=== PATIENT | female | born 1995 | race Caucasian/White ===

== ENCOUNTER 2016-10-05 10:06 | Emergency (ER) | payer OTHER ==
[2016-10-05 10:32] VITALS: BP 127/62; PULSE 80; RESP 20; TEMP 98.8
--- NOTE | 2016-10-05 10:55 | ED ---
ENT HPI - General Chief complaint: ENT Stated complaint: congestion Time Seen by Provider: 10/05/16 10:39 Source: patient, RN notes reviewed Mode of arrival: ambulatory Limitations: no limitations - History of Present Illness Initial comments: 21-year-old female presents emergency Department chief complaint of cough cold runny nose like symptoms. Patient states that she has had the symptoms for the last few days. Patient states that her sinus cement-like symptoms. Patient is a smoker. Patient denies any sputum production with cough. She denies any changes in eating and drinking she denies any nausea or vomiting. Patient states she's a sore throat ear pain and swelling glands. Patient states that she just was not feeling much better so she thought that she should be evaluated.Patient denies any recent fever, chills, shortness of breath, chest pain, back pain, abdominal pain, nausea vomiting, numbness or tingling, dysuria or hematuria, constipation or diarrhea, headaches or visual changes, or any other current symptoms. - Related Data Home Medications Medication Instructions Recorded Confirmed Vit No.124/Iron/FA 1 each PO DAILY 01/20/15 07/24/15 [ Vitamin Tablet] Previous Rx's Medication Instructions Recorded predniSONE 50 mg PO DAILY #5 tab 10/05/16 Allergies Allergy/AdvReac Type Severity Reaction Status Date / Time amoxicillin Allergy Rash/Hives Verified 10/05/16 10:32 erythromycin base Allergy Rash/Hives Verified 10/05/16 10:32 latex Allergy Rash/Hives Verified 10/05/16 10:32 Penicillins Allergy Rash/Hives Verified 10/05/16 10:32 Review of Systems ROS Statement: Those systems with pertinent positive or pertinent negative responses have been documented in the HPI. ROS Other: All systems not noted in ROS Statement are negative. Past Medical History Past Medical History: Seizure Disorder Additional Past Medical History / Comment(s): Obstetrical history: First was a vaginal delivery at 36 weeks, 6 lbs. 7 oz. This is her second . She's had care with me since 11 weeks gestation. She did not inform me that she's been smoking marijuana as well as cigarettes daily. Her blood type is A+, antibodies negative, rubella immune, RPR nonreactive, hepatitis B-, abnormal 1 hour but normal 3 hour glucose tolerance test. She's been having nausea and vomiting through her entire . At 35 weeks baby was only measuring and a 10 percentile and continues measure small. GBS positive History of Any Multi-Drug Resistant Organisms: None Reported Past Surgical History: Hernia Repair Past Anesthesia/Blood Transfusion Reactions: No Reported Reaction Past Psychological History: ADD/ADHD Smoking Status: Current every day smoker Past Alcohol Use History: None Reported Past Drug Use History: Marijuana - Past Family History Father Family Medical History: No Reported History General Exam - General Exam Comments Initial Comments: General exam: Alert, active, comfortable in no apparent distress Head: Normocephalic Eyes: Normal reaction of pupils, equal size, normal range of extraocular motion Ears: normal external ear canals, pink tympanic membranes with normal cone of light Nose: clear with pink turbinates Throat: Erythema, no exudates with normal sized tonsils Neck: no masses, no nuchal rigidity Chest: no chest wall deformity Lungs: equal air entry with no crackles or wheeze CVS: S1 and S2 normal with no audible mumurs, regular rhythm Abdomen: no hepatosplenomegaly, normal bowel sounds, no guarding or rigidity Spine: no scoliosis or deformity Skin: no rashes Neurological: No focal deficits, tone is normal in all 4 extremities Limitations: no limitations Course Vital Signs 10/05/16 10:28 Temperature 98.8 F Pulse Rate 80 Respiratory 20 Rate Blood Pressure 127/62 O2 Sat by Pulse 100 Oximetry Medical Decision Making - Medical Decision Making 19-year-old female presents to the emergency department with a chief complaint of cough cold runny nose like symptoms. This time patient's testing results came back and did not show any acute process. This time we discussed patient with significant upper respiratory infection. Discussed Motrin Tylenol for pain and fever control. We discussed return parameters and follow-up. We discussed all the patient's questions and she stated that she understood. This time they will be discharged home. - Lab Data Lab Results 10/05/16 10/05/16 Range/Units 10:58 10:58 Influenza Type A RNA Not Detected (Not Detectd) Influenza Type B (PCR) Not Detected (Not Detectd) Group A Strep Rapid Negative (Negative) - Radiology Data Radiology results: report reviewed, image reviewed Disposition Clinical Impression: Upper respiratory infection Disposition: HOME SELF-CARE Condition: Stable Instructions: Upper Respiratory Infection (ED) Additional Instructions: Please use medication as discussed. Please follow up with family doctor if symptoms have not improved over the next two days. Please return to the emergency room if your symptoms increase or worsen or for any other concerns. Prescriptions: predniSONE 50 mg PO DAILY #5 tab Referrals: Lesly Clay DO [Primary Care Provider] - 1-2 days Time of Disposition: 12:00
--- NOTE | 2016-10-05 11:52 | XR ---
EXAMINATION TYPE: XR chest 2V DATE OF EXAM: 10/05/2016 11:17 AM COMPARISON: None HISTORY: 21-year-old female with cough TECHNIQUE: PA and lateral views FINDINGS: The cardiomediastinal silhouette, aorta, and pulmonary vasculature are within normal limits. Lungs an d pleural spaces are clear. IMPRESSION: No acute cardiopulmonary process.
== END 2016-10-05 12:18 | disposition home or self-care (01) ==
LOC: EC 10:06
DX: O99.511 Diseases of the respiratory system complicating pregnancy, first trimester (principal); J06.9 Acute upper respiratory infection, unspecified; O99.331 Smoking (tobacco) complicating pregnancy, first trimester; F17.210 Nicotine dependence, cigarettes, uncomplicated; Z3A.11 11 weeks gestation of pregnancy; Z88.0 Allergy status to penicillin; Z88.1 Allergy status to other antibiotic agents; Z91.040 Latex allergy status; Z79.899 Other long term (current) drug therapy
CPT/HCPCS: 71020; 87081; 87430; 87502; 99283

== ENCOUNTER 2018-10-13 23:21 | Emergency (ER) | payer OTHER ==
[2018-10-13 23:40] VITALS: BP 124/76; PULSE 89; RESP 18; TEMP 98.3
[2018-10-13] MEDS ORDERED: CLINDAMYCIN 150 MG CAP PO STA (23:54)
[2018-10-13] MEDS ORDERED: ACET/COD 300 MG/30 MG STARTER PACK 6 TAB BTL PO STA (23:54)
[2018-10-13] MEDS ORDERED: HYDROcodone/APAP 5-325MG 1 EACH TAB PO STA (23:54)
--- NOTE | 2018-10-13 23:58 | ED ---
ENT HPI - General Chief complaint: ENT Stated complaint: Dental Pain/ Abscess Time Seen by Provider: 10/13/18 23:45 Source: patient, RN notes reviewed Mode of arrival: ambulatory Limitations: no limitations - History of Present Illness Initial comments: 23-year-old female presents emergency Department with chief complaint of dental pain. Patient states she has a known dental fracture and concern for dental abscess and right lower region. Patient states that she is unable to see a dentist at this time she does not have dental insurance. Patient is splinted with dental clinic. Patient reports no fevers or chills. Patient states that she took some Motrin states that did not help the pain. Patient states pains increased last 3 hours. - Related Data Home Medications Medication Instructions Recorded Confirmed Vit No.124/Iron/Folic 1 each PO DAILY 01/20/15 07/24/15 [ Vitamin Tablet] Previous Rx's Medication Instructions Recorded predniSONE 50 mg PO DAILY #5 tab 10/05/16 Clindamycin HCl 300 mg PO Q6HR #40 cap 10/13/18 Allergies Allergy/AdvReac Type Severity Reaction Status Date / Time amoxicillin Allergy Rash/Hives Verified 10/13/18 23:40 erythromycin base Allergy Rash/Hives Verified 10/13/18 23:40 latex Allergy Rash/Hives Verified 10/13/18 23:40 Penicillins Allergy Rash/Hives Verified 10/13/18 23:40 Review of Systems ROS Statement: Those systems with pertinent positive or pertinent negative responses have been documented in the HPI. ROS Other: All systems not noted in ROS Statement are negative. Past Medical History Past Medical History: Seizure Disorder Additional Past Medical History / Comment(s): Obstetrical history: First was a vaginal delivery at 36 weeks, 6 lbs. 7 oz. This is her second . She's had care with me since 11 weeks gestation. She did not inform me that she's been smoking marijuana as well as cigarettes daily. Her blood type is A+, antibodies negative, rubella immune, RPR nonreactive, hepatitis B-, abnormal 1 hour but normal 3 hour glucose tolerance test. She's been having nausea and vomiting through her entire . At 35 weeks baby was only measuring and a 10 percentile and continues measure small. GBS positive History of Any Multi-Drug Resistant Organisms: None Reported Past Surgical History: Hernia Repair Past Anesthesia/Blood Transfusion Reactions: No Reported Reaction Past Psychological History: ADD/ADHD, Bipolar, Depression Smoking Status: Current every day smoker Past Alcohol Use History: None Reported Past Drug Use History: Marijuana - Past Family History Father Family Medical History: No Reported History General Exam Limitations: no limitations General appearance: alert, in no apparent distress Head exam: Present: atraumatic, normocephalic, normal inspection Eye exam: Present: normal appearance, PERRL, EOMI. Absent: scleral icterus, conjunctival injection, periorbital swelling ENT exam: Present: normal oropharynx (Dental fracture right lower, left lower no drainable abscess mild erythema right lower region.), mucous membranes moist, TM's normal bilaterally. Absent: normal exam Neck exam: Present: normal inspection, full ROM. Absent: tenderness, meningismus, lymphadenopathy Respiratory exam: Present: normal lung sounds bilaterally. Absent: respiratory distress, wheezes, rales, rhonchi, stridor Cardiovascular Exam: Present: regular rate, normal rhythm, normal heart sounds. Absent: systolic murmur, diastolic murmur, rubs, gallop, clicks Course Vital Signs 10/13/18 23:38 Temperature 98.3 F Pulse Rate 89 Respiratory 18 Rate Blood Pressure 124/76 O2 Sat by Pulse 100 Oximetry Medical Decision Making - Medical Decision Making 23-year-old female presented for dental pain. Patient has a known dental fracture, dental infection. Patient was started on clindamycin and she is advised to follow-up with a dentist. Return parameters were discussed. Disposition Clinical Impression: Dental infection Disposition: HOME SELF-CARE Condition: Stable Instructions (If sedation given, give patient instructions): Toothache (ED) Additional Instructions: Please return to the Emergency Department if symptoms worsen or any other concerns. Prescriptions: Clindamycin HCl 300 mg PO Q6HR #40 cap Is patient prescribed a controlled substance at d/c from ED?: No Referrals: Lesly Clay DO [Primary Care Provider] - 1-2 days Time of Disposition: 23:57
== END 2018-10-14 00:17 | disposition home or self-care (01) ==
LOC: EC 23:21
DX: K04.7 Periapical abscess without sinus (principal); S02.5XXA Fracture of tooth (traumatic), initial encounter for closed fracture; F17.210 Nicotine dependence, cigarettes, uncomplicated; Z88.0 Allergy status to penicillin; Z88.1 Allergy status to other antibiotic agents; Z91.040 Latex allergy status; X58.XXXA Exposure to other specified factors, initial encounter
CPT/HCPCS: 99283

== ENCOUNTER 2019-06-29 09:33 | Emergency (ER) | payer OTHER ==
[2019-06-29 09:39] VITALS: RESP 18; TEMP 97.8
--- NOTE | 2019-06-29 10:24 | ED ---
Female Urogenital HPI - General Chief complaint: Urogenital Stated complaint: groin pain Time Seen by Provider: 06/29/19 09:40 Source: patient Mode of arrival: ambulatory Limitations: no limitations - History of Present Illness Initial comments: Patient is a 24-year-old female presenting to the emergency Department with complaints of a lump in her right groin area for 2 days. Patient admits to minor pain with the lump as well. Patient denies any other symptoms at this time including fever, chills, vaginal complaints, urinary complaints, nausea, vo miting. She has never had this before. There are no other complaints at this time. Upon arrival to ER, her vital signs are stable. - Related Data Home Medications Medication Instructions Recorded Confirmed Vit No.124/Iron/Folic 1 each PO DAILY 01/20/15 07/24/15 [ Vitamin Tablet] Previous Rx's Medication Instructions Recorded predniSONE 50 mg PO DAILY #5 tab 10/05/16 Clindamycin HCl 300 mg PO Q6HR #40 cap 10/13/18 Allergies Allergy/AdvReac Type Severity Reaction Status Date / Time amoxicillin Allergy Rash/Hives Verified 06/29/19 09:39 erythromycin base Allergy Rash/Hives Verified 06/29/19 09:39 latex Allergy Rash/Hives Verified 06/29/19 09:39 Penicillins Allergy Rash/Hives Verified 06/29/19 09:39 Review of Systems ROS Statement: Those systems with pertinent positive or pertinent negative responses have been documented in the HPI. ROS Other: All systems not noted in ROS Statement are negative. Past Medical History Past Medical History: Seizure Disorder Additional Past Medical History / Comment(s): Obstetrical history: First was a vaginal delivery at 36 weeks, 6 lbs. 7 oz. This is her second . She's had care with me since 11 weeks gestation. She did not inform me that she's been smoking marijuana as well as cigarettes daily. Her blood type is A+, antibodies negative, rubella immune, RPR nonreactive, hepatitis B-, abnormal 1 hour but normal 3 hour glucose tolerance test. She's been having nausea and vomiting through her entire . At 35 weeks baby was only measuring and a 10 percentile and continues measure small. GBS positive History of Any Multi-Drug Resistant Organisms: None Reported Past Surgical History: Hernia Repair Past Anesthesia/Blood Transfusion Reactions: No Reported Reaction Past Psychological History: ADD/ADHD, Bipolar, Depression Smoking Status: Current every day smoker Past Alcohol Use History: None Reported Past Drug Use History: Marijuana - Past Family History Father Family Medical History: No Reported History General Exam - General Exam Comments Initial Comments: GENERAL: Well-appearing, well-nourished and in no acute distress. HEAD: Atraumatic, normocephalic. EYES: Pupils equal round and reactive to light, extraocular movements intact, sclera anicteric, conjunctiva are normal. ENT: Moist mucous membranes. NECK: Normal range of motion, supple without lymphadenopathy or JVD. LUNGS: Breath sounds clear to auscultation bilaterally and equal. No wheezes rales or rhonchi. HEART: Regular rate and rhythm without murmurs, rubs or gallops. ABDOMEN: Soft, nontender, normoactive bowel sounds. No guarding, no rebound. No masses appreciated. : Deferred, painful right inguinal lymph node. There is no overlying erythema or swelling. EXTREMITIES: Normal range of motion, no pitting or edema. No clubbing or cyanosis. NEUROLOGICAL: Normal speech, normal gait. PSYCH: Normal mood, normal affect. SKIN: Warm, Dry, normal turgor, no rashes or lesions noted. Limitations: no limitations Course Vital Signs 06/29/19 06/29/19 09:37 10:47 Temperature 97.8 F Pulse Rate 89 76 Respiratory 18 18 Rate Blood Pressure 138/84 109/53 O2 Sat by Pulse 99 99 Oximetry Medical Decision Making - Medical Decision Making Patient is a 24-year-old female presenting with a painful right inguinal lymph node. Patient has no other signs symptoms on exam. Vital signs are stable. UA shows no infection, hCG is negative. I discussed these findings with the patient in suggested she use warm compresses to the area and follow-up with her PCP or [facility]. She is in agreement with this plan and care. Patient stable for discharge at this time. - Lab Data Lab Results 06/29/19 06/29/19 Range/Units 09:56 09:56 Urine Color Light Yellow Urine Appearance Clear (Clear) Urine pH 6.0 (5.0-8.0) Ur Specific [place] 1.012 (1.001-1.035) Urine Protein Negative (Negative) Urine Glucose (UA) Negative (Negative) Urine Ketones Negative (Negative) Urine Blood Moderate H (Negative) Urine Nitrite Negative (Negative) Urine Bilirubin Negative (Negative) Urine Urobilinogen <2.0 (<2.0) mg/dL Ur Leukocyte Esterase Negative (Negative) Urine RBC 1 (0-5) /hpf Urine WBC <1 (0-5) /hpf Ur Squamous Epith Cells <1 (0-4) /hpf Urine Mucus Rare H (None) /hpf Urine HCG, Qual Not Detected (Not Detectd) Disposition Clinical Impression: Enlarged lymph node, Right inguinal pain Disposition: HOME SELF-CARE Condition: Stable Instructions (If sedation given, give patient instructions): Lymphadenopathy (ED) Additional Instructions: Please return to the Emergency Department if symptoms worsen or any other concerns. Follow-up with PCP or [facility]. Use warm compresses to the area. Is patient prescribed a controlled substance at d/c from ED?: No Referrals: Lesly Clay DO [Primary Care Provider] - 1-2 days
[2019-06-29 10:27] LABS: Appearance,Urine Clear (Clear); Bilirubin,Urine Negative (Negative); Blood,Urine Moderate (Negative); Color,Urine Light Yellow; Glucose,Urine (UA) Negative (Negative); Ketones,Urine Negative (Negative); Leukocyte Esterase,Urine Negative (Negative); Mucus,Urine Rare /hpf; Nitrite,Urine Negative (Negative); Protein,Urine Negative (Negative); RBC,Urine 1 /hpf (0-5); Specific Gravity,Urine 1.012 (1.001-1.035); Squamous Epithelial Cell,Urine <1 /hpf (0-4); Urobilinogen,Urine <2.0 mg/dL (<2.0); WBC,Urine <1 /hpf (0-5)
[2019-06-29 10:48] VITALS: BP 109/53; PULSE 76
== END 2019-06-29 10:47 | disposition home or self-care (01) ==
LOC: EC 09:33
DX: R10.31 Right lower quadrant pain (principal); R59.9 Enlarged lymph nodes, unspecified; Z32.02 Encounter for pregnancy test, result negative; F17.200 Nicotine dependence, unspecified, uncomplicated; Z88.0 Allergy status to penicillin; Z88.1 Allergy status to other antibiotic agents; Z91.040 Latex allergy status
CPT/HCPCS: 81001; 81025; 99283

== ENCOUNTER 2019-11-21 16:58 | Emergency (ER) | payer OTHER ==
[2019-11-21 17:20] VITALS: BP 119/66; PULSE 72; RESP 18; TEMP 99.2
--- NOTE | 2019-11-21 18:40 | ED ---
Recheck HPI - General Chief Complaint: Recheck/Abnormal Lab/Rx Stated Complaint: test Time Seen by Provider: 11/21/19 18:35 Source: patient Mode of arrival: ambulatory Limitations: no limitations - History of Present Illness Initial Comments: 24-year-old female presenting today for chief complaint of positive test. Patient states her last period was in August she states that she had a positive test today. She said all dependency clinics are closed and that is why she presented to the ER to see how far along she was. She denies any complaints Luly abdominal pain cramping vaginal bleeding vaginal discharge dysuria urgency frequency hematuria patient denies any back pain or cramping. Review of systems negative upon arrival patient appears well no signs of acute distress. - Related Data Home Medications Medication Instructions Recorded Confirmed Vit No.124/Iron/Folic 1 each PO DAILY 01/20/15 07/24/15 [ Vitamin Tablet] Previous Rx's Medication Instructions Recorded predniSONE 50 mg PO DAILY #5 tab 10/05/16 Clindamycin HCl 300 mg PO Q6HR #40 cap 10/13/18 Allergies Allergy/AdvReac Type Severity Reaction Status Date / Time amoxicillin Allergy Rash/Hives Verified 11/21/19 17:20 erythromycin base Allergy Rash/Hives Verified 11/21/19 17:20 latex Allergy Rash/Hives Verified 11/21/19 17:20 Penicillins Allergy Rash/Hives Verified 11/21/19 17:20 Review of Systems ROS Statement: Those systems with pertinent positive or pertinent negative responses have been documented in the HPI. ROS Other: All systems not noted in ROS Statement are negative. Past Medical History Past Medical History: Seizure Disorder Additional Past Medical History / Comment(s): Obstetrical history: First was a vaginal delivery at 36 weeks, 6 lbs. 7 oz. This is her second . She's had care with me since 11 weeks gestation. She did not inform me that she's been smoking marijuana as well as cigarettes daily. Her blood type is A+, antibodies negative, rubella immune, RPR nonreactive, hepatitis B-, abnormal 1 hour but normal 3 hour glucose tolerance test. She's been having nausea and vomiting through her entire . At 35 weeks baby was only measuring and a 10 percentile and continues measure small. GBS positive History of Any Multi-Drug Resistant Organisms: None Reported Past Surgical History: Hernia Repair Past Anesthesia/Blood Transfusion Reactions: No Reported Reaction Past Psychological History: ADD/ADHD, Bipolar, Depression Smoking Status: Current every day smoker Past Alcohol Use History: None Reported Past Drug Use History: Marijuana - Past Family History Father Family Medical History: No Reported History General Exam - General Exam Comments Initial Comments: General: The patient is awake and alert, in no distress, and does not appear acutely ill. Eye: Pupils are equal, round and reactive to light, extra-ocular movements are intact. No nystagmus. There is normal conjunctiva bilaterally. No signs of icterus. Cardiovascular: There is a regular rate and rhythm. No murmur, rub or gallop is appreciated. Respiratory: Lungs are clear to auscultation, respirations are non-labored, breath sounds are equal. No wheezes, stridor, rales, or rhonchi. Gastrointestinal: Soft, non-distended, non-tender abdomen without masses or organomegaly noted. There is no rebound or guarding present. Musculoskeletal: Normal ROM, no tenderness. Strength 5/5. Sensation intact. Pu lses equal bilaterally 2+. Neurological: A&O x 3. CN II-XII intact grossly, There are no obvious motor or sensory deficits. Coordination appears grossly intact. Speech is normal. Skin: Skin is warm and dry and no rashes or lesions are noted. Psychiatric: Cooperative, appropriate mood & affect, normal judgment. Limitations: no limitations Course Vital Signs 11/21/19 17:15 Temperature 99.2 F Pulse Rate 72 Respiratory 18 Rate Blood Pressure 119/66 O2 Sat by Pulse 98 Oximetry Medical Decision Making - Medical Decision Making 24-year-old female presented for . She has no complaints. I recommend patient follow-up with clinic as she has no abdominal pain vaginal bleeding--or other emergent complaints. I feel that outpatient follow-up is appropriate at this time. Patient is agreeable and states she knows which clinic to go toDr. Trimble agreeable to this care plan and discharge.Recommended initiated pre-natals. Disposition Clinical Impression: Positive home test Disposition: HOME SELF-CARE Condition: Good Additional Instructions: Please follow-up with family doctor in the next 2 days, or clinic. If you develop pain, bleeding please return to the ER for evaluation-otherwise at this time you may follow-up outpatient for evaluation of . Is patient prescribed a controlled substance at d/c from ED?: No Referrals: Lesly Clay DO [Primary Care Provider] - 1-2 days Time of Disposition: 18:39
== END 2019-11-21 19:23 | disposition home or self-care (01) ==
LOC: EC 16:58
DX: Z32.01 Encounter for pregnancy test, result positive (principal); F17.200 Nicotine dependence, unspecified, uncomplicated; Z88.0 Allergy status to penicillin; Z88.1 Allergy status to other antibiotic agents; Z91.040 Latex allergy status
CPT/HCPCS: 99281

== ENCOUNTER 2020-05-22 06:30 | Inpatient (IN) | payer OTHER ==
[2020-05-22] MEDS ORDERED: LIDOCAINE 0.5% (PF) 5 MG/ML (50 ML SDV) SQ PRN (07:22)
[2020-05-22] MEDS ORDERED: TERBUTALINE 1 MG/ML VIAL SQ PRN (07:22)
[2020-05-22] MEDS ORDERED: OXYTOCIN 10 UNIT/ML 1 ML VIAL IM PRN (07:22)
[2020-05-22] MEDS ORDERED: METHYLERGONOVINE 0.2 MG/ML 1 ML AMP IM PRN (07:22)
[2020-05-22] MEDS ORDERED: CARBOPROST TROMETHAMINE 250 MCG/ML 1 ML AMP IM PRN (07:22)
[2020-05-22] MEDS ORDERED: OXYTOCIN 30 UNITS/500 ML NS 30 UNIT in SALINE 1 500ML.BAG IV SCH (07:30)
[2020-05-22] MEDS: LACTATED RINGERS 1,000 ML IV SCH ×2 (07:33→10:16)
[2020-05-22 08:01] LABS: Amphetamine Screen,Urine Not Detected (NotDetected); Barbiturate Screen,Urine Not Detected (NotDetected); Benzodiazepines Screen,Urine Not Detected (NotDetected); Cocaine Screen,Urine Not Detected (NotDetected); Methadone Screen, Urine Not Detected (NotDetected); Opiate Screen,Urine Not Detected (NotDetected); Oxycodone Screen, Urine Not Detected (NotDetected); Phencyclidine Screen,Urine Not Detected (NotDetected); Tricyclic Antidepressant,Urine Not Detected (NotDetected); Urn Cannabinoid Scrn Detected (NotDetected)
[2020-05-22 08:13] LABS: Anisocytosis Slight; Basophils % (A) 0 %; Eosinophils # (A) 0.1 k/uL (0-0.7); Eosinophils % (A) 1 %; HCT 32.6 % (34.0-46.0); HGB 10.1 gm/dL (11.4-16.0); Hypochromasia Marked; Lymphocytes # (A) 2.4 k/uL (1.0-4.8); Lymphocytes % (A) 21 %; MCH 23.2 pg (25.0-35.0); MCV 74.8 fL (80.0-100.0); Mean Platelet Volume 10.4; Microcytosis Slight; Monocytes # (A) 0.7 k/uL (0-1.0); Monocytes % (A) 6 %; Neutrophils # (A) 8.3 k/uL (1.3-7.7); Neutrophils % (A) 71 %; Platelet Count 222 k/uL (150-450); Poikilocytosis Slight; RBC 4.35 m/uL (3.80-5.40); RDW 17.2 % (11.5-15.5); WBC 11.7 k/uL (3.8-10.6)
[2020-05-22 08:38] LABS: Large Platelets Present
--- NOTE | 2020-05-22 17:29 | P.HPOB ---
History of Present Illness H&P Date: 05/22/20 Chief Complaint: Induction of labor 25-year-old presented at 40 weeks and 1 day for induction of labor. Her cervix is 4 cm dilated, 80% effaced, -2 station. She is shari irregularly. heart tones 135 with moderate variability and reactive. Review of Systems All systems: negative Constitutional: Denies chills, Denies fever Eyes: denies blurred vision, denies pain Ears, nose, mouth and throat: Denies headache, Denies sore throat Cardiovascular: Denies chest pain, Denies shortness of breath Respiratory: Denies cough Gastrointestinal: Denies abdominal pain, Denies diarrhea, Denies nausea, Denies vomiting Genitourinary: Denies dysuria, Denies hematuria Musculoskeletal: Denies myalgias Integumentary: Denies pruritus, Denies rash Neurological: Denies numbness, Denies weakness Psychiatric: Denies anxiety, Denies depression Endocrine: Denies fatigue, Denies weight change Past Medical History Past Medical History: Seizure Disorder Additional Past Medical History / Comment(s): Obstetrical history: First 2 pregnancies were vaginal deliveries. She's had care with me since the third trimester. Her blood type is A+, antibodies negative, rubella immune, RPR nonreactive, hepatitis B-. On May 08 she tested positive for marijuana and opiates on her UDS. Today she tested positive for marijuana. History of Any Multi-Drug Resistant Organisms: None Reported Past Surgical History: Hernia Repair Past Anesthesia/Blood Transfusion Reactions: No Reported Reaction Past Psychological History: ADD/ADHD, Bipolar, Depression Smoking Status: Current every day smoker Past Alcohol Use History: None Reported Past Drug Use History: Marijuana Additional Drug Use History / Comment(s): Last use of THC a few days ago. - Past Family History Father Family Medical History: No Reported History Medications and Allergies Home Medications Medication Instructions Recorded Confirmed Type Vit No.124/Iron/Folic 1 each PO DAILY 01/20/15 05/22/20 History [ Vitamin Tablet] Allergies Allergy/AdvReac Type Severity Reaction Status Date / Time amoxicillin Allergy Rash/Hives Verified 05/22/20 07:21 erythromycin base Allergy Rash/Hives Verified 05/22/20 07:21 latex Allergy Rash/Hives Verified 05/22/20 07:21 Penicillins Allergy Rash/Hives Verified 05/22/20 07:21 Exam Osteopathic Statement: *. No significant issues noted on an osteopathic structural exam other than those noted in the History and Physical/Consult. Vital Signs Temp Pulse Resp BP Pulse Ox 05/22/20 16:56 97.9 F 69 20 116/73 05/22/20 16:30 70 20 123/56 05/22/20 16:15 83 20 128/61 05/22/20 16:00 20 116/61 05/22/20 15:41 20 122/63 05/22/20 15:26 96.3 F L 80 20 132/66 05/22/20 07:21 97.1 F L 89 16 131/62 98 Intake and Output 05/22/20 05/22/20 05/22/20 06:59 14:59 22:59 Intake Total 300 Output Total 400 Balance -100 Intake: Oral 300 Output: Urine 200 Estimated Blood Loss 200 Other: Weight 72.121 kg Heart: Regular rate and rhythm Lungs: Clear to auscultation bilaterally Abdomen: Soft, nontender Extremities: Negative Homans sign Results Result Diagrams: 05/22/20 07:28 Abnormal Lab Results - Last 24 Hours (Table) 05/22/20 05/22/20 Range/Units 07:28 07:30 WBC 11.7 H (3.8-10.6) k/uL Hgb 10.1 L (11.4-16.0) gm/dL Hct 32.6 L (34.0-46.0) % MCV 74.8 L (80.0-100.0) fL MCH 23.2 L (25.0-35.0) pg RDW 17.2 H (11.5-15.5) % Neutrophils # 8.3 H (1.3-7.7) k/uL U Marijuana (THC) Screen Detected H (NotDetected) Assessment and Plan (1) Normal labor Current Visit: Yes Status: Acute Code(s): O80 - ENCOUNTER FOR FULL-TERM UNCOMPLICATED DELIVERY; Z37.9 - OUTCOME OF DELIVERY, UNSPECIFIED SNOMED Code(s): 01080708 Plan: 1. Induction of labor with amniotomy and Pitocin 2. Anticipate normal vaginal delivery 3. Consulted with pediatrics due to her history of opiates and marijuana
--- NOTE | 2020-05-22 17:30 | P.PROBDLV ---
Vaginal Delivery Note - . Vaginal Delivery Note: 25-year-old presented at 40 weeks and 1 day for induction of labor. Her cervix is 4 cm dilated, 80% effaced, -2 station. She is shari irregularly. heart tones 135 with moderate variability and reactive. Pitocin was started. Amniotomy performed at 7:50 AM and clear fluid noted. When she was uncomfortable she did get an epidural. Her cervix was completely dilated at 1455. She pushed, delivered a viable male over intact perineum under epidural anesthesia at 1515. Head delivered OA, anterior shoulder delivered gentle downward guidance for by posterior shoulder and rest of body. Nose and mouth bulb suctioned, cord clamped cut, infant placed mother's abdomen. Apgars 8, 9, weight 7 lbs. 10 oz. Placenta delivered spontaneously, intact with three-vessel cord at 1517. Vagina, cervix, perineum inspected. No lacerations noted. Estimated blood loss 200 mL. Mother and baby in stable condition.
[2020-05-22] MEDS ORDERED: diphenhydrAMINE 50 MG/ML 1 ML VIAL IVP PRN ×2 (21:15)
[2020-05-22] MEDS ORDERED: HYDROCORTISONE 2.5% RECTAL CREAM 30 GM TUBE RECTAL PRN (21:15)
[2020-05-22] MEDS ORDERED: diphenhydrAMINE 25 MG CAP PO PRN (21:15)
[2020-05-22] MEDS ORDERED: ZOLPIDEM 5 MG TAB PO PRN (21:15)
[2020-05-22] MEDS ORDERED: LANOLIN CREAM 5 GM TUBE TOPICAL PRN (21:15)
[2020-05-22] MEDS ORDERED: BENZOCAINE/MENTHOL SPRAY 1 GM/SPRAY AEROSOL TOPICAL PRN (21:15)
[2020-05-22] MEDS ORDERED: ACETAMINOPHEN TAB 325 MG TAB PO PRN (21:15)
[2020-05-22] MEDS ORDERED: diphenhydrAMINE 50 MG CAP PO PRN (21:15)
--- NOTE | 2020-05-23 07:31 | P.DS ---
Providers Date of admission: 05/22/20 07:13 Expected date of discharge: 05/23/20 Attending physician: Ileana Bundy Primary care physician: Stated None - Discharge Diagnosis(es) (1) Normal labor Current Visit: Yes Status: Resolved (2) Normal vaginal delivery Current Visit: Yes Status: Acute Hospital Course: Patient presented for induction of labor. She underwent normal vaginal delivery. Her course was uncomplicated. She denies nausea, vomiting, chest pain, shortness of breath or calf pain. Her lochia is decreasing. When I asked her about testing positive for opiates she is very confused as to how she tested positive. She says she only took Tylenol for pain ever during her , but she does remember eating poppy seed bride with her sister near the time that I tested her on May 08. She'll have a social service consult today and then be discharged home tomorrow day #2 in stable condition to follow-up with me in 6 weeks. Plan - Discharge Summary New Discharge Prescriptions: New Ibuprofen [Motrin] 600 mg PO Q6HR PRN #30 tab PRN Reason: Mild Pain Or Fever >= 100.5 No Action Vit No.124/Iron/Folic [ Vitamin Tablet] 1 each PO DAILY Discharge Medication List Vit No.124/Iron/Folic [ Vitamin Tablet] 1 each PO DAILY 01/20/15 [History] Ibuprofen [Motrin] 600 mg PO Q6HR PRN #30 tab 05/23/20 [Rx] Follow up Appointment(s)/Referral(s): Ileana Bundy DO [Doctor of Osteopathic Medicine] - 6 Weeks Discharge Disposition: HOME SELF-CARE
[2020-05-23] MEDS: IBUPROFEN 600 MG TAB PO PRN ×3 (07:36→22:09)
[2020-05-23] MEDS: SENNOSIDES-DOCUSATE SODIUM 1 EACH TAB PO SCH ×2 (07:36→22:11)
[2020-05-23 08:12] LABS: Anisocytosis Slight; Basophils % (A) 0 %; Eosinophils # (A) 0.1 k/uL (0-0.7); Eosinophils % (A) 0 %; HCT 28.7 % (34.0-46.0); HGB 8.8 gm/dL (11.4-16.0); Hypochromasia Marked; Lymphocytes # (A) 2.1 k/uL (1.0-4.8); Lymphocytes % (A) 17 %; MCH 23.2 pg (25.0-35.0); MCHC 30.7 g/dL (31.0-37.0); MCV 75.6 fL (80.0-100.0); Mean Platelet Volume 10.7; Microcytosis Slight; Monocytes # (A) 0.6 k/uL (0-1.0); Monocytes % (A) 5 %; Neutrophils # (A) 9.4 k/uL (1.3-7.7); Neutrophils % (A) 77 %; Platelet Count 177 k/uL (150-450); Poikilocytosis Slight; RDW 17.3 % (11.5-15.5); WBC 12.3 k/uL (3.8-10.6)
[2020-05-23 09:33] LABS: Large Platelets Present
[2020-05-23 15:39] VITALS: RESP 16
[2020-05-23 23:56] VITALS: TEMP 98.1
[2020-05-24 08:55] VITALS: BP 123/84; PULSE 71
== END 2020-05-24 09:05 | disposition home or self-care (01) | DRG 807 ==
LOC: 4FBP 07:13
PROVIDERS: ADMIT Obstetrics & Gynecology; ATTEND Obstetrics & Gynecology
PROC: 10E0XZZ Delivery of Products of Conception, External Approach (ICD-10-PCS; principal; 2020-05-22)
DX: O99.354 Diseases of the nervous system complicating childbirth (principal); Z37.0 Single live birth; O99.344 Other mental disorders complicating childbirth; O99.334 Smoking (tobacco) complicating childbirth; G40.909 Epilepsy, unspecified, not intractable, without status epilepticus; F90.9 Attention-deficit hyperactivity disorder, unspecified type; F31.9 Bipolar disorder, unspecified; F17.200 Nicotine dependence, unspecified, uncomplicated; Z3A.40 40 weeks gestation of pregnancy; Z88.0 Allergy status to penicillin; Z88.1 Allergy status to other antibiotic agents; Z91.040 Latex allergy status
CPT/HCPCS: 80306; 85025; 86850; 86900; 86901

== ENCOUNTER 2023-08-29 00:40 | Emergency (ER) | payer OTHER ==
[2023-08-29 00:52] VITALS: TEMP 97.9
[2023-08-29 02:08] VITALS: BP 128/81; PULSE 64; RESP 16
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
[2023-08-29] MEDS: ACETAMINOPHEN TAB 325 MG TAB PO STA (03:42)
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
== END 2023-08-29 04:00 | disposition home or self-care (01) ==
LOC: EC 00:40
DX: M54.9 Dorsalgia, unspecified (principal); R51.9 Headache, unspecified; F17.200 Nicotine dependence, unspecified, uncomplicated; F12.90 Cannabis use, unspecified, uncomplicated; Z88.0 Allergy status to penicillin; Z88.1 Allergy status to other antibiotic agents; Z91.040 Latex allergy status; V43.52XA Car driver injured in collision with other type car in traffic accident, initial encounter; Y92.410 Unspecified street and highway as the place of occurrence of the external cause
CPT/HCPCS: 72040; 72070; 72100; 72170; 99284

== ENCOUNTER 2023-09-05 08:22 | Emergency (ER) | payer OTHER ==
--- NOTE | 2023-09-05 08:54 | ED ---
Nausea/Vomiting/Diarrhea HPI - General Chief complaint: Headache Stated complaint: Headache/Cough Time Seen by Provider: 09/05/23 08:40 Source: patient, RN notes reviewed Mode of arrival: ambulatory Limitations: no limitations - History of Present Illness Initial comments: 28-year-old female presents emergency department with a chief complaint of headache, body aches, and left flank LLQ pain. States that symptoms started yesterday, and is concerned since she states she feels the same way when she was diagnosed with COVID in the past. Patient admits to cough denies congestion, shortness of breath, fever. Patient has taken Tylenol at home, yesterday evening, with minimal relief. Patient states that she been experiencing left flank and left lower quadrant pain since yesterday morning. Patient denies dysuria, hematuria, or foul odor of urine. She states that she has a history of urinary tract infections, and has had been hospitalized for a kidney infection in the past. Patient denies history of kidney stones. - Related Data Previous Rx's Medication Instructions Recorded Clindamycin [Cleocin] 450 mg PO Q8H 10 Days #30 cap 10/03/21 Allergies Allergy/AdvReac Type Severity Reaction Status Date / Time amoxicillin Allergy Rash/Hives Verified 09/05/23 08:36 erythromycin base Allergy Rash/Hives Verified 09/05/23 08:36 latex Allergy Rash/Hives Verified 09/05/23 08:36 Penicillins Allergy Rash/Hives Verified 09/05/23 08:36 Review of Systems ROS Statement: Those systems with pertinent positive or pertinent negative responses have been documented in the HPI. ROS Other: All systems not noted in ROS Statement are negative. Past Medical History Past Medical History: No Reported History History of Any Multi-Drug Resistant Organisms: None Reported Past Surgical History: Hernia Repair Past Anesthesia/Blood Transfusion Reactions: No Reported Reaction Past Psychological History: ADD/ADHD, Bipolar, Depression Smoking Status: Current every day smoker Past Alcohol Use History: None Reported Past Drug Use History: Marijuana - Past Family History Father Family Medical History: No Reported History General Exam Limitations: no limitations General appearance: alert, in no apparent distress Head exam: Present: atraumatic, normocephalic, normal inspection Eye exam: Present: normal appearance, PERRL, EOMI. Absent: scleral icterus, conjunctival injection, periorbital swelling ENT exam: Present: normal exam, mucous membranes moist Neck exam: Present: normal inspection. Absent: tenderness, meningismus, lymphadenopathy Respiratory exam: Present: normal lung sounds bilaterally. Absent: respiratory distress, wheezes, rales, rhonchi, stridor Cardiovascular Exam: Present: regular rate, normal rhythm, normal heart sounds. Absent: systolic murmur, diastolic murmur, rubs, gallop, clicks GI/Abdominal exam: Present: soft, tenderness (LLQ and suprapubic), normal bowel sounds. Absent: guarding, rebound, rigid Extremities exam: Present: normal inspection, full ROM, normal capillary refill. Absent: tenderness, pedal edema, joint swelling, calf tenderness Back exam: Present: full ROM, CVA tenderness (L) Neurological exam: Present: alert, oriented X3, CN II-XII intact Psychiatric exam: Present: normal affect, normal mood Skin exam: Present: warm, dry, intact, normal color. Absent: rash Course Vital Signs 09/05/23 09/05/23 08:33 09:03 Temperature 98.7 F Pulse Rate 63 Respiratory 18 12 Rate Blood Pressure 119/84 O2 Sat by Pulse 96 Oximetry Medical Decision Making - Medical Decision Making Was pt. sent in by a medical professional or institution (, PA, FIELD CROP FARM WORKER, urgent care, hospital, or alf...) When possible be specific @ -No Did you speak to anyone other than the patient for history (EMS, parent, family, police, friend...)? What history was obtained from this source @ -No Did you review nursing and triage notes (agree or disagree)? Why? @ -I reviewed and agree with nursing and triage notes Were old charts reviewed (outside hosp., previous admission, EMS record, old EKG, old radiological studies, urgent care reports/EKG's, alf records)? Report findings @ -No old charts were reviewed Differential Diagnosis (chest pain, altered mental status, abdominal pain women, abdominal pain men, vaginal bleeding, weakness, fever, dyspnea, syncope, headache, dizziness, GI bleed, back pain, seizure, CVA, palpatations, mental health, musculoskeletal)? @ -DM differential: Viral infection, urinary tract infection, pyelonephritis EKG interpreted by me (3pts min.). @ -None X-rays interpreted by me (1pt min.). @ -None done CT interpreted by me (1pt min.). @ -None done U/S interpreted by me (1pt. min.). @ -None done What testing was considered but not performed or refused? (CT, X-rays, U/S, labs)? Why? @ -None What meds were considered but not given or refused? Why? @ -None Did you discuss the management of the patient with other professionals (professionals i.e. DrJoanne, PA, FIELD CROP FARM WORKER, lab, RT, psych nurse, community mental health social worker, clothing pattern preparer, teacher, cavalry officer, nurse case manager)? Give summary @ -No Was smoking cessation discussed for >3mins.? @ -No Was critical care preformed (if so, how long)? @ -No Were there social determinants of health that impacted care today? How? (Homelessness, low income, unemployed, alcoholism, drug addiction, transportation, low edu. Level, literacy, decrease access to med. care, shelter, rehab)? @ -No Was there de-escalation of care discussed even if they declined (Discuss DNR or withdrawal of care, Hospice)? DNR status @ -No What co-morbidities impacted this encounter? (DM, HTN, Smoking, COPD, CAD, Cancer, CVA, ARF, Chemo, Hep., AIDS, mental health diagnosis, sleep apnea, morbid obesity)? @ -None Was patient admitted / discharged? Hospital course, mention meds given and route, prescriptions, significant lab abnormalities, going to OR and other pertinent info. @ -Discharged. 28-year-old female presents to emergency department with chief complaint of headache, fatigue, left lower quadrant and back pain. Vitals stable. Was given a shot of Toradol for pain relief. Patient's positive for influenza A. Urinalysis results show 3+ ketones, no leukocytes, no white blood cells. States that her headache is significantly improved after shot of Toradol. Discussed with patient that her symptoms started yesterday she is a candidate for Tamiflu, patient denies prescription. Continue at home symptomatic relief with Tylenol and Motrin, increase fluid intake. Undiagnosed new problem with uncertain prognosis? @ -No Drug Therapy requiring intensive monitoring for toxicity (Heparin, Nitro, Insulin, Cardizem)? @ -No Were any procedures done? @ -No Diagnosis/symptom? @ -Influenza A Acute, or Chronic, or Acute on Chronic? @ -Acute Uncomplicated (without systemic symptoms) or Complicated (systemic symptoms)? @ -Uncomplicated Side effects of treatment? @ -No Exacerbation, Progression, or Severe Exacerbation? @ -No Poses a threat to life or bodily function? How? (Chest pain, [place], [place], pneumonia, PE, COPD, DKA, ARF, appy, cholecystitis, CVA, Diverticulitis, Homicidal, Suicidal, threat to staff... and all critical care pts) @ -No - Lab Data Lab Results 09/05/23 09/05/23 09/05/23 Range/Units 08:38 08:57 08:57 Urine Color Yellow Urine Appearance Cloudy H (Clear) Urine pH 5.5 (5.0-8.0) Ur Specific [place] 1.034 (1.001-1.035) Urine Protein 1+ H (Negative) Urine Glucose (UA) Negative (Negative) Urine Ketones 3+ H (Negative) Urine Blood Negative (Negative) Urine Nitrite Negative (Negative) Urine Bilirubin 1+ H (Negative) Urine Urobilinogen 2.0 (<2.0) mg/dL Ur Leukocyte Esterase Negative (Negative) Urine RBC 3 (0-5) /hpf Urine WBC <1 (0-5) /hpf Ur Squamous Epith Cells 18 H (0-4) /hpf Urine Mucus Many H (None) /hpf Urine HCG, Qual Not Detected (Not Detectd) Influenza Type A (PCR) Detected A (Not Detectd) Influenza Type B (PCR) Not Detected (Not Detectd) RSV (PCR) Not Detected (Not Detectd) SARS-CoV-2 (PCR) Not Detected (Not Detectd) Disposition Clinical Impression: Influenza A Narrative: Please return to the Emergency Department if symptoms worsen or any other concerns. Disposition: HOME SELF-CARE Condition: Good Instructions (If sedation given, give patient instructions): Influenza (ED) Is patient prescribed a controlled substance at d/c from ED?: No Referrals: Lesly Clay DO [Primary Care Provider] - 1-2 days Time of Disposition: 09:45
[2023-09-05 09:09] VITALS: RESP 12; TEMP 98.7
[2023-09-05 09:09] LABS: Appearance,Urine Cloudy (Clear); Bilirubin,Urine 1+ (Negative); Blood,Urine Negative (Negative); Color,Urine Yellow; Glucose,Urine (UA) Negative (Negative); Ketones,Urine 3+ (Negative); Leukocyte Esterase,Urine Negative (Negative); Mucus,Urine Many /hpf; Nitrite,Urine Negative (Negative); PH, Urine 5.5 (5.0-8.0); Protein,Urine 1+ (Negative); RBC,Urine 3 /hpf (0-5); Specific Gravity,Urine 1.034 (1.001-1.035); Squamous Epithelial Cell,Urine 18 /hpf (0-4); WBC,Urine <1 /hpf (0-5)
[2023-09-05] MEDS: KETOROLAC 15 MG/ML 1 ML VIAL IM STA (09:09)
[2023-09-05 10:14] VITALS: BP 110/82; PULSE 74
== END 2023-09-05 10:08 | disposition home or self-care (01) ==
LOC: EC 08:22
DX: J10.1 Influenza due to other identified influenza virus with other respiratory manifestations (principal); F12.90 Cannabis use, unspecified, uncomplicated; F17.200 Nicotine dependence, unspecified, uncomplicated; Z88.0 Allergy status to penicillin; Z88.8 Allergy status to other drugs, medicaments and biological substances; Z91.040 Latex allergy status; Z20.822 Contact with and (suspected) exposure to COVID-19
CPT/HCPCS: 81001; 81025; 87636; 99283; 96372; J1885

== ENCOUNTER 2024-05-03 22:46 | Emergency (ER) | payer OTHER ==
[2024-05-03 22:51] VITALS: RESP 18
--- NOTE | 2024-05-03 23:48 | ED ---
General Adult HPI - General Chief complaint: Headache Stated complaint: Migraine Time Seen by Provider: 05/03/24 22:53 Source: patient, RN notes reviewed Mode of arrival: ambulatory Limitations: no limitations - History of Present Illness Initial comments: 29-year-old female presents to the emergency department for evaluation of frontal headache. Patient states that this started 2 days ago. She reports that she has tried Tylenol, Excedrin, Motrin without relief of this headache. She states that it is similar in character to headaches she has experienced in the past but typically they are relieved with Excedrin. She denies recent fever, illness. Denies sudden onset of pain. - Related Data Previous Rx's Medication Instructions Recorded Clindamycin [Cleocin] 450 mg PO Q8H 10 Days #30 cap 10/03/21 Allergies Allergy/AdvReac Type Severity Reaction Status Date / Time amoxicillin Allergy Rash/Hives Verified 05/03/24 22:50 erythromycin base Allergy Rash/Hives Verified 05/03/24 22:50 latex Allergy Rash/Hives Verified 05/03/24 22:50 Penicillins Allergy Rash/Hives Verified 05/03/24 22:50 Review of Systems ROS Statement: Those systems with pertinent positive or pertinent negative responses have been documented in the HPI. ROS Other: All systems not noted in ROS Statement are negative. Past Medical History Past Medical History: No Reported History History of Any Multi-Drug Resistant Organisms: None Reported Past Surgical History: Hernia Repair Past Anesthesia/Blood Transfusion Reactions: No Reported Reaction Past Psychological History: ADD/ADHD, Bipolar, Depression Smoking Status: Current every day smoker, Vaper Past Alcohol Use History: None Reported Past Drug Use History: Marijuana - Past Family History Father Family Medical History: No Reported History General Exam Limitations: no limitations General appearance: alert, in no apparent distress Head exam: Present: atraumatic, normocephalic, normal inspection Eye exam: Present: normal appearance, PERRL, EOMI, other (Photophobia). Absent: scleral icterus, conjunctival injection, periorbital swelling ENT exam: Present: normal exam, mucous membranes moist, TM's normal bilaterally, normal external ear exam Neck exam: Present: normal inspection. Absent: tenderness, meningismus, lymphadenopathy Respiratory exam: Present: normal lung sounds bilaterally. Absent: respiratory distress, wheezes, rales, rhonchi, stridor Cardiovascular Exam: Present: regular rate, normal rhythm, normal heart sounds. Absent: systolic murmur, diastolic murmur, rubs, gallop, clicks Extremities exam: Present: normal inspection, full ROM, normal capillary refill. Absent: tenderness, pedal edema, joint swelling, calf tenderness Back exam: Present: normal inspection Neurological exam: Present: alert, oriented X3, CN II-XII intact Psychiatric exam: Present: normal affect, normal mood Skin exam: Present: warm, dry, intact, normal color. Absent: rash Course Vital Signs 05/03/24 05/04/24 22:48 00:53 Temperature 98.2 F 98.0 F Pulse Rate 75 71 Respiratory 18 18 Rate Blood Pressure 121/82 116/80 O2 Sat by Pulse 100 100 Oximetry Medical Decision Making - Medical Decision Making Was pt. sent in by a medical professional or institution (, PA, TAXATION ECONOMIST, urgent care, hospital, or prison...) When possible be specific @ -No Did you speak to anyone other than the patient for history (EMS, parent, family, police, friend...)? What history was obtained from this source @ -No Did you review nursing and triage notes (agree or disagree)? Why? @ -I reviewed and agree with nursing and triage notes Were old charts reviewed (outside hosp., previous admission, EMS record, old EKG, old radiological studies, urgent care reports/EKG's, prison records)? Report findings @ -No old charts were reviewed Differential Diagnosis (chest pain, altered mental status, abdominal pain women, abdominal pain men, vaginal bleeding, weakness, fever, dyspnea, syncope, headache, dizziness, GI bleed, back pain, seizure, CVA, palpatations, mental health, musculoskeletal)? @ -Differential Headache: Migraine, tension, cluster, carbon monoxide, central venous thrombosis, pension karma temporal arteritis, acute closure glaucoma, intercranial hemorrhage, mastoiditis, sinusitis, head injury, this is not meant to be an all-inclusive list. EKG interpreted by me (3pts min.). @ -None X-rays interpreted by me (1pt min.). @ -None done CT interpreted by me (1pt min.). @ -None done U/S interpreted by me (1pt. min.). @ -None done What testing was considered but not performed or refused? (CT, X-rays, U/S, labs)? Why? @ -None What meds were considered but not given or refused? Why? @ -None Did you discuss the management of the patient with other professionals (professionals i.e. , PA, TAXATION ECONOMIST, lab, RT, psych nurse, social media manager, public bath attendant, teacher, contracts officer, case folder)? Give summary @ -No Was smoking cessation discussed for >3mins.? @ -No Was critical care preformed (if so, how long)? @ -No Were there social determinants of health that impacted care today? How? (Homelessness, low income, unemployed, alcoholism, drug addiction, transportation, low edu. Level, literacy, decrease access to med. care, [facility], rehab)? @ -No Was there de-escalation of care discussed even if they declined (Discuss DNR or withdrawal of care, Hospice)? DNR status @ -No What co-morbidities impacted this encounter? (DM, HTN, Smoking, COPD, CAD, Cancer, CVA, ARF, Chemo, Hep., AIDS, mental health diagnosis, sleep apnea, morbid obesity)? @ -None Was patient admitted / discharged? Hospital course, mention meds given and route, prescriptions, significant lab abnormalities, going to OR and other pertinent info. @ -Discharge. Patient presented to the emergency department for evaluation of headache x 2 days. Patient has had headache like this in the past but this time has been longer in duration. She denies any red flag symptoms at this time. Neurological examination shows no focal neurological deficits. Patient was provided a migraine cocktail in the emergency department including IV fluids, Toradol, Benadryl, Reglan. Patient reports significant improvement in her symptoms following this. Patient is comfortable with discharge home. Advise strict return precautions. She is understanding agreeable plan. Patient stable at time of discharge. Case discussed with Dr. Merchant. Undiagnosed new problem with uncertain prognosis? @ -No Drug Therapy requiring intensive monitoring for toxicity (Heparin, Nitro, Insulin, Cardizem)? @ -No Were any procedures done? @ -No Diagnosis/symptom? @ -Headache Acute, or Chronic, or Acute on Chronic? @ -Acute Uncomplicated (without systemic symptoms) or Complicated (systemic symptoms)? @ -Uncomplicated Side effects of treatment? @ -No Exacerbation, Progression, or Severe Exacerbation? @ -No Poses a threat to life or bodily function? How? (Chest pain, [place], [place], pneumonia, PE, COPD, DKA, ARF, appy, cholecystitis, CVA, Diverticulitis, Homicidal, Suicidal, threat to staff... and all critical care pts) @ -No Disposition Clinical Impression: Headache Disposition: HOME SELF-CARE Condition: Stable Instructions (If sedation given, give patient instructions): Acute Headache (ED) Additional Instructions: Please follow up with your primary care provider. Return to the emergency department for new or worsening symptoms. Is patient prescribed a controlled substance at d/c from ED?: No Referrals: Lesly Clay DO [Primary Care Provider] - 1-2 days
[2024-05-03] MEDS: SODIUM CHLORIDE 0.9% 1,000 ML IV ONE (23:59)
[2024-05-04] MEDS: KETOROLAC 15 MG/ML 1 ML VIAL IVP STA
[2024-05-04] MEDS: diphenhydrAMINE 50 MG/ML 1 ML VIAL IVP STA (00:01)
[2024-05-04] MEDS: METOCLOPRAMIDE 5 MG/ML 2 ML VIAL IVP STA (00:03)
[2024-05-04 00:54] VITALS: BP 116/80; PULSE 71; TEMP 98
== END 2024-05-04 00:54 | disposition home or self-care (01) ==
LOC: EC 22:46
DX: G43.909 Migraine, unspecified, not intractable, without status migrainosus (principal); F17.290 Nicotine dependence, other tobacco product, uncomplicated; Z88.0 Allergy status to penicillin; Z88.1 Allergy status to other antibiotic agents; Z91.040 Latex allergy status
CPT/HCPCS: 96361; 96374; 96375; 99283

== ENCOUNTER 2024-05-24 18:52 | Emergency (ER) | payer OTHER ==
--- NOTE | 2024-05-24 19:47 | ED ---
Extremity Problem HPI - General Chief complaint: Extremity Problem,Nontraumatic Stated complaint: R Wrist/Arm Pain Time Seen by Provider: 05/24/24 19:27 Source: patient, RN notes reviewed Mode of arrival: ambulatory Limitations: no limitations - History of Present Illness Initial comments: This is a 29-year-old female who presents to the emergency department with right arm pain. Patient states that she was diagnosed with carpal tunnel earlier this year due to problems with numbness in her first 3 fingertips. However, states that pain is getting worse. She has had increasing pain in the wrist specifically going up near the elbow. States that she also feels like her toter strength is reduced. Describes her pain as burning from the inside out. Has been taking ibuprofen and Tylenol without any relief in symptoms. Pain does not go past the elbow. MD Complaint: extremity pain - Related Data Previous Rx's Medication Instructions Recorded Clindamycin [Cleocin] 450 mg PO Q8H 10 Days #30 cap 10/03/21 Meloxicam [Mobic] 15 mg PO DAILY PRN #20 tab 05/24/24 methocarbamoL [Robaxin-750] 1,500 mg PO TID PRN #30 tab 05/24/24 predniSONE 50 mg PO DAILY 5 Days #5 tab 05/24/24 Allergies Allergy/AdvReac Type Severity Reaction Status Date / Time amoxicillin Allergy Rash/Hives Verified 05/24/24 19:09 erythromycin base Allergy Rash/Hives Verified 05/24/24 19:09 latex Allergy Rash/Hives Verified 05/24/24 19:09 Penicillins Allergy Rash/Hives Verified 05/24/24 19:09 Review of Systems ROS Statement: Those systems with pertinent positive or pertinent negative responses have been documented in the HPI. ROS Other: All systems not noted in ROS Statement are negative. Past Medical History Past Medical History: Asthma Additional Past Medical History / Comment(s): carpal tunnel History of Any Multi-Drug Resistant Organisms: None Reported Past Surgical History: Hernia Repair Past Anesthesia/Blood Transfusion Reactions: No Reported Reaction Past Psychological History: ADD/ADHD, Bipolar, Depression Smoking Status: Current every day smoker, Vaper Past Alcohol Use History: Rare Past Drug Use History: Marijuana - Past Family History Father Family Medical History: No Reported History General Exam Limitations: no limitations General appearance: alert, in no apparent distress Head exam: Present: atraumatic, normocephalic, normal inspection Respiratory exam: Present: normal lung sounds bilaterally. Absent: respiratory distress, wheezes, rales, rhonchi, stridor Cardiovascular Exam: Present: regular rate, normal rhythm, normal heart sounds. Absent: systolic murmur, diastolic murmur, rubs, gallop, clicks Extremities exam: Present: other (Tenderness to palpation over the right wrist and forearm. No swelling or erythema. Positive Gene test on the right. 2+ radial pulses.) Neurological exam: Present: alert, oriented X3, CN II-XII intact Psychiatric exam: Present: normal affect, normal mood Skin exam: Present: warm, dry, intact, normal color. Absent: rash Course Vital Signs 05/24/24 05/24/24 19:09 21:27 Temperature 98.3 F 98.1 F Pulse Rate 75 78 Respiratory 18 17 Rate Blood Pressure 139/59 128/60 O2 Sat by Pulse 98 98 Oximetry Medical Decision Making - Medical Decision Making This is a 29 year old female who presents to the emergency department for right wrist pain. Was pt. sent in by a medical professional or institution? @ -No Did you speak to anyone other than the patient for history? @ -No Did you review nursing and triage notes? @ -Yes, and I agree, it is accurate with regards to the patient's symptoms. Were old charts reviewed? @ -No Differential Diagnosis? @ -Differential Musculoskeletal: Muscular strain, contusion, ligament sprain, fracture, arthritis, septic arthritis, bursitis, cellulitis, muscle spasm, nerve compression, DVT, arterial occlusion, herpes zoster, electrolyte abnormality, tumor.... This is not meant to be in all inclusive list EKG interpreted by me (3pts min.)? @ -Not obtained X-rays interpreted by me (1pt min.)? @ -X-ray of the right wrist and forearm obtained. My interpretation identifies no acute fractures. CT interpreted by me (1pt min.)? @ -Not obtained U/S interpreted by me (1pt. min.)? @ -Not obtained What testing was considered but not performed? (CT, X-rays, U/S, labs)? Why? @ -None What meds were considered but not given? Why? @ -None Did you discuss the management of the patient with other professionals? @ -No Did you reconcile home meds? @ -No Was smoking cessation discussed for >3mins.? @ -No Was critical care preformed (if so, how long)? @ -No Were there social determinants of health that impacted care today? How? (Homelessness, low income, unemployed, alcoholism, drug addiction, transportation, low edu. Level, literacy, decrease access to med. care, intermediate, rehab)? @ -No Was there de-escalation of care discussed even if they declined? (Discuss DNR or withdrawal of care, Hospice)? @ -No What co-morbidities impacted this encounter? (DM, HTN, Smoking, COPD, CAD, Cancer, CVA, Hep., AIDS, mental health diagnosis, sleep apnea, morbid obesity)? @ -None Was patient admitted / discharged? @ -Discharged. X-ray of the right wrist and forearm obtained revealing no acute process. Patient had most of the tenderness and pain over the right thumb and wrist. Discussed the possibility of de Quervain's tenosynovitis in conjunction with carpal tunnel causing problems. She does admit to repetitive thumb use due to video games and texting. Pain treated in the emergency department. Advised an [id number] splint specifically for the de Quervain's. Prescription for prednisone and Robaxin provided. Mobic prescribed to be taken after she finishes the prednisone. Advised follow-up with orthopedics for reevaluation and discussion of additional treatment options. Patient discharged home in stable condition. Case discussed with ED attending Dr. Hung. Return precautions reviewed in depth, the patient is instructed to return to the emergency department with any new, worsening, or concerning symptoms. Patient verbalized understanding. Undiagnosed new problem with uncertain prognosis? @ -None Drug Therapy requiring intensive monitoring for toxicity (Heparin, Nitro, Insulin, Cardizem)? @ -None Were any procedures done? @ -None Diagnosis/symptom? @ -De Quervain's tenosynovitis, right wrist pain Acute, or Chronic, or Acute on Chronic? @ -Acute Uncomplicated (without systemic symptoms) or Complicated (systemic symptoms)? @ -Uncomplicated Side effects of treatment? @ -None Exacerbation, Progression, or Severe Exacerbation] @ -Not applicable Poses a threat to life or bodily function? @ -May limit use of the right wrist and hand for the mean time - Radiology Data Radiology results: report reviewed, image reviewed Disposition Clinical Impression: De Quervain's tenosynovitis, right, Carpal tunnel syndrome on right Disposition: HOME SELF-CARE Instructions (If sedation given, give patient instructions): De Quervain Disease (ED) Additional Instructions: Return to the emergency department with any new, worsening, or concerning symptoms. Take the prednisone daily for 5 days. After finishing the prednisone, begin taking the Mobic once daily. Do not take this with any other anti-inflammatories such as ibuprofen. You may take it with Tylenol. Take the Robaxin as 1 to 2 tablets up to 3-4 times daily. You can look up wrist braces for De Quervain's tenosynovitis specifically to see if they are different from your carpal tunnel brace. Avoid repetitive movements of the thumb. Follow-up with orthopedic hand specialist listed below to discuss other options such as steroid injections or surgery. Follow up with your primary care provider in 1-2 days. Prescriptions: Meloxicam [Mobic] 15 mg PO DAILY PRN #20 tab PRN Reason: Pain predniSONE 50 mg PO DAILY 5 Days #5 tab methocarbamoL [Robaxin-750] 1,500 mg PO TID PRN #30 tab PRN Reason: Pain Is patient prescribed a controlled substance at d/c from ED?: No Referrals: Lesly Clay DO [Primary Care Provider] - 1-2 days Kash Boggs MD [STAFF PHYSICIAN] - 1-2 days Time of Disposition: 21:10
[2024-05-24] MEDS: KETOROLAC 15 MG/ML 1 ML VIAL IVP STA ×2 (20:07→21:19)
[2024-05-24] MEDS: MORPHINE SULFATE 4 MG/ML SYRINGE IVP STA ×2 (20:09→21:19)
[2024-05-24] MEDS: DEXAMETHASONE SOD PHOSPHATE 10 MG/ML 1 ML VIAL IVP STA (20:10)
[2024-05-24] MEDS: ORPHENADRINE 30 MG/ML 2 ML VIAL IVP STA (20:11)
--- NOTE | 2024-05-24 20:50 | XR ---
EXAMINATION TYPE: XR wrist complete RT, XR forearm RT DATE OF EXAM: 05/24/2024 8:37 PM COMPARISON: None CLINICAL INDICATION: Female, 29 years old with history of Pain; [facility] TECHNIQUE: XR wrist complete RT, XR forearm RT; examined in the Frontal, navicular, lateral, and obl ique. FINDINGS: No acute osseous pathology, joint dislocation, or joint effusion. No evidence of any soft tissue swelling is seen. Carpal alignment appears maintained. Radius and ulna are intact. No signific ant radiographic evidence of soft tissue swelling. No unexpected radiopaque foreign body. IMPRESSION: No acute osseous pathology in the right wrist or right forearm. [facility], , 05/24/2024 8:48 PM
[2024-05-24] MEDS: ACET/COD 300 MG/30 MG STARTER PACK 6 TAB BTL PO STA (21:17)
[2024-05-24 21:29] VITALS: BP 128/60; PULSE 78; RESP 17; TEMP 98.1
== END 2024-05-24 21:29 | disposition home or self-care (01) ==
LOC: EC 18:52
DX: G56.01 Carpal tunnel syndrome, right upper limb (principal); M65.4 Radial styloid tenosynovitis [de Quervain]; F17.290 Nicotine dependence, other tobacco product, uncomplicated; Z88.0 Allergy status to penicillin; Z88.1 Allergy status to other antibiotic agents; Z91.040 Latex allergy status
CPT/HCPCS: 73090; 73110; 99284; 96374; 96375 ×3; 96376 ×2; J2270; J1100; J2360; J1885